=== PATIENT | male | born 1950 | race Caucasian/White ===

== ENCOUNTER → 2018-10-31 | Outpatient (CLI) | payer OTHER | END | disposition home or self-care (01) | LOC: SHCH 12:55 | PROVIDERS: ATTEND Internal Medicine Cardiovascular Disease | DX: I08.9 Rheumatic multiple valve disease, unspecified (principal) | CPT/HCPCS: 93306 ==

== ENCOUNTER → 2018-12-09 | Outpatient (CLI) | payer OTHER | END | disposition home or self-care (01) | LOC: SHCH 07:51 | PROVIDERS: ATTEND Internal Medicine Cardiovascular Disease | DX: E11.9 Type 2 diabetes mellitus without complications (principal); I73.9 Peripheral vascular disease, unspecified | CPT/HCPCS: 93978 ==

== ENCOUNTER → 2018-12-10 | Outpatient (CLI) | payer OTHER ==
[~2018-12-10] VITALS: Ht 188 cm; Wt 86.6 kg
[~2018-12-10] MED LIST: REGADENOSON 0.4 MG/5 ML PF SYG IVP SCH
== END | disposition home or self-care (01) ==
LOC: SHCH 11:25
PROVIDERS: ATTEND Internal Medicine Cardiovascular Disease
DX: R94.31 Abnormal electrocardiogram [ECG] [EKG] (principal)
CPT/HCPCS: 78452; 93017; 96374; A9500 ×2; J2785

== ENCOUNTER → 2018-12-25 | Outpatient (CLI) | payer OTHER ==
[2018-12-25 11:39] LABS: CREATININE 0.9 mg/dL (0.5-1.5)
== END | disposition home or self-care (01) ==
LOC: LAB 10:59
PROVIDERS: ATTEND Internal Medicine Cardiovascular Disease
DX: R07.9 Chest pain, unspecified (principal); I25.10 Atherosclerotic heart disease of native coronary artery without angina pectoris
CPT/HCPCS: 36415; 82565; 84520

== ENCOUNTER 2019-02-04 08:46 | Observation (INO) | payer OTHER ==
[2019-01-30 12:23] LABS: APPEARANCE,URINE Clear (CLEAR); BILIRUBIN,URINE Negative (NEGATIVE); COLOR,URINE Yellow (YELLOW); GLUCOSE, URINE (UA) Negative (NEGATIVE); KETONES,URINE Negative (NEGATIVE); LEUKOCYTE ESTERASE ,URINE Small (NEGATIVE); NITRATE,URINE Negative (NEGATIVE); OCCULT BLOOD,URINE Negative (NEGATIVE); PROTEIN,URINE Negative (NEGATIVE)
[2019-01-30 12:23] LABS: BASOPHILS % (AUTO) 0.7 % (0.0-5.0); HEMATOCRIT 42.4 % (42-54); LYMPHOCYTES % (AUTO) 25.9 % (21.0-51.0); MEAN CORPUSCULAR HEMOGLOBIN 33.3 pg (27.0-33.0); MEAN CORPUSCULAR HGB CONC 34.1 g/dL (32.0-36.0); MEAN CORPUSCULAR VOLUME 97.8 fL (79-99); MONOCYTES % (AUTO) 6.9 % (3.0-13.0); NEUTROPHILS % (AUTO) 61.5 % (40.0-77.0); NUCLEATED RED BLOOD CELLS 0.1 % (0.0-0.19); PLATELET COUNT (AUTO) 170 K/uL (130-400); RED BLOOD CELL COUNT(AUTO) 4.33 MIL/uL (4.50-6.20); RED CELL DISTRIBUTION WIDTH 13.2 % (11.0-15.5); WHITE BLOOD COUNT (AUTO) 6.7 K/uL (4.8-10.8)
[2019-01-30 12:31] LABS: CREATININE 0.8 mg/dL (0.5-1.5)
[2019-01-30 12:35] LABS: INR 1.08 (0.85-1.15); PARTIAL THROMBOPLASTIN TIME 27.2 SEC (26.3-35.5); PROTHROMBIN TIME 11.3 SEC (9.6-11.6)
[2019-01-30 12:47] LABS: BACTERIA,URINE None Seen /HPF (None Seen); RBC,URINE 0-1 /HPF (0-1); SQUAMOUS EPITHELIAL CELL,UR 0-2 /HPF (0-2); WBC,URINE 0-1 /HPF (0-1)
[2019-01-30 12:59] VITALS: BP 124/68
--- NOTE | 2019-02-03 10:45 | NUR ---
ABNORMAL LABS ABNORMAL UA RESULT REPORTED TO JAMA ZAMORA AT [facility]. PER NOAH, UA RESULT REPORTED TO GIORGI WHALEN OF DR. TAYLOR. NO FURTHER ORDERS GIVEN, MAY PROCEED WITH PLANNED PROCEDURE.
[2019-02-04] VITALS (18 sets, daily range): BP systolic 102–157; BP diastolic 60–104
[~2019-02-04] VITALS: Ht 182.9 cm; Wt 8.6 kg
[~2019-02-04 08:46] MED LIST changes: +ALBUTEROL; +ASPI-1026 PO; +BUDE10.2 IH; +COMBIVENT; +EPINEPHRIN IM; +GUAIFENESIN; +HYDROCORTISONE; +IPRA3AMP24 IH; +KETO5DRO75 OP; +LACHLOT TP; +LISI-613 PO; +LORA10CA9 PO; +METO-391 PO; +MULT400C3 PO; +NITR0.4T50 SL; +OXYB5POW MC; -REGADENOSON 0.4 MG/5 ML PF SYG IVP SCH; +SIMV40TA5 PO; +TERA1CAP4 PO; +THEOPHYLLINE; +[UNRECOGNIZED DRUG - OTHER]; +[UNRECOGNIZED DRUG - OTHER]; +[UNRECOGNIZED DRUG - OTHER]; +[UNRECOGNIZED DRUG - OTHER]
[2019-02-04] MEDS ORDERED: SODIUM CHLORIDE 0.9% 1000ML 1,000 ML IV ONE (10:15)
--- NOTE | 2019-02-04 10:27 | NUR ---
PROCEDURE PT HERE FOR PROCEDURE. PT DENIES ANY PAIN AT THIS TIME.
[2019-02-04] MEDS ORDERED: SODIUM BICARB 50MEQ 50ML VIAL ONE (10:32)
[2019-02-04] MEDS ORDERED: HEPARIN SODIUM 1000UNIT/ML 10ML VIAL ONE (10:32)
[2019-02-04] MEDS ORDERED: IOHEXOL-350 50ML VIAL IV ONE (10:33)
[2019-02-04] MEDS ORDERED: IOHEXOL 350 MG/ML 100ML INFUS..BTL IV ONE (10:33)
[2019-02-04] MEDS ORDERED: NITROGLYCERIN 5 MG/ML 10 ML VIAL IV ONE (10:33)
[2019-02-04] MEDS ORDERED: LIDOCAINE HCL 2% 20ML ONE (10:33)
--- NOTE | 2019-02-04 10:40 | NUR ---
PROCEDURE PT TAKEN TO PROCEDURE VIA BENZENE WASHER OPERATOR STAFF María ARITA RN.
[2019-02-04] MEDS ORDERED: MEPERIDINE-PF 25 MG/ML SYG ONE (10:50)
[2019-02-04] MEDS ORDERED: MIDAZOLAM HCL 1 MG/ML 2ML VIAL ONE (10:50)
[2019-02-04] MEDS ORDERED: ASPIRIN 81MG TAB.CHEW ONE (12:22)
[2019-02-04] MEDS ORDERED: CLOPIDOGREL BISULFATE 300 MG TAB ONE (12:22)
[2019-02-04] MEDS ORDERED: METO-391 PO (12:24)
[2019-02-04] MEDS ORDERED: CLOB15CR5 TP (12:24)
[2019-02-04] MEDS ORDERED: AEC81 PO (12:24)
[2019-02-04] MEDS: SODIUM CHLORIDE 0.9% 1000ML 1,000 ML IV SCH ×2 (12:27→21:56)
[2019-02-04] MEDS ORDERED: ACETAMINOPHEN-CODEINE 300/30MG TAB PO PRN ×2 (12:30)
[2019-02-04] MEDS ORDERED: ONDANSETRON HCL 4 MG/2 ML VIAL IVP PRN (12:30)
[2019-02-04] MEDS ORDERED: NITROGLYCERIN 0.4 MG SL TAB SL PRN (12:45)
[2019-02-04] MEDS ORDERED: IPRATROPIUM/ALBUTEROL SULFATE 3 ML SOLUTION IH SCH (12:45)
[2019-02-04] MEDS ORDERED: PHARMACY COMMUNICATION MISC SCH (12:45)
[2019-02-04] MEDS ORDERED: ALBUTEROL SULFATE/IPRATROPIUM 103/18 MCG/PUFF 14.7 GM INHR IH SCH (13:00)
[2019-02-04] MEDS ORDERED: CLOPIDOGREL BISULFATE 300 MG TAB PO SCH (13:55)
[2019-02-04] MEDS ORDERED: IPRATROPIUM/ALBUTEROL SULFATE 3 ML SOLUTION IH PRN (15:30)
[2019-02-04 16:05] LABS: BASOPHILS % (AUTO) 0.6 % (0.0-5.0); EOSINOPHILS % (AUTO) 4.5 % (0.0-8.0); HEMATOCRIT 38.3 % (42-54); LYMPHOCYTES % (AUTO) 26.4 % (21.0-51.0); MEAN CORPUSCULAR HEMOGLOBIN 33.1 pg (27.0-33.0); MEAN CORPUSCULAR HGB CONC 34.6 g/dL (32.0-36.0); MEAN CORPUSCULAR VOLUME 95.7 fL (79-99); MONOCYTES % (AUTO) 6.8 % (3.0-13.0); NEUTROPHILS % (AUTO) 61.7 % (40.0-77.0); PLATELET COUNT (AUTO) 160 K/uL (130-400); WHITE BLOOD COUNT (AUTO) 5.8 K/uL (4.8-10.8)
[2019-02-04] MEDS: IPRATROPIUM/ALBUTEROL SULFATE 3 ML SOLUTION IH SCH ×2 (18:58→23:31)
[2019-02-04] MEDS: BUDESONIDE 0.5 MG/2 ML INH IH SCH (19:10)
[2019-02-04] MEDS ORDERED: SIMVASTATIN 20 MG TABLET PO SCH (21:00)
[2019-02-04] MEDS ORDERED: OXYBUTYNIN CHLORIDE 5 MG TABLET PO SCH (21:00)
[2019-02-05] MEDS: GUAIFENESIN-DM 200/20 MG 10 ML PO PRN ×2 (03:05→08:46)
[2019-02-05 04:00] VITALS: BP 122/62
[2019-02-05 05:39] LABS: HEMATOCRIT 38.3 % (42-54); MEAN CORPUSCULAR HEMOGLOBIN 33.6 pg (27.0-33.0); MEAN CORPUSCULAR HGB CONC 34.4 g/dL (32.0-36.0); MEAN CORPUSCULAR VOLUME 97.5 fL (79-99); PLATELET COUNT (AUTO) 137 K/uL (130-400); RED BLOOD CELL COUNT(AUTO) 3.93 MIL/uL (4.50-6.20); WHITE BLOOD COUNT (AUTO) 6.9 K/uL (4.8-10.8)
[2019-02-05 05:57] LABS: CREATININE 0.8 mg/dL (0.5-1.5); POTASSIUM 4.6 mmol/L (3.5-5.1)
[2019-02-05] MEDS: IPRATROPIUM/ALBUTEROL SULFATE 3 ML SOLUTION IH SCH ×2 (06:18→11:09)
[2019-02-05] MEDS: BUDESONIDE 0.5 MG/2 ML INH IH SCH (06:20)
[2019-02-05] MEDS: SODIUM CHLORIDE 0.9% 1000ML 1,000 ML IV SCH (06:38)
[2019-02-05 07:30] VITALS: BP 118/64
[2019-02-05] MEDS ORDERED: ASPIRIN 81 MG EC TAB PO SCH (09:00)
[2019-02-05] MEDS ORDERED: LORATADINE 10 MG TABLET PO SCH (09:00)
[2019-02-05] MEDS ORDERED: CLOBETASOL PROPIONATE TP SCH (09:00)
[2019-02-05] MEDS ORDERED: MULTIVITAMIN TABLET PO SCH (09:00)
[2019-02-05] MEDS ORDERED: EMOLL TP SCH (09:00)
[2019-02-05] MEDS ORDERED: THEOPHYLLINE ANHYDROUS 100 MG CAP.ER.24H PO SCH (09:00)
[2019-02-05] MEDS ORDERED: LISINOPRIL 20 MG TABLET PO SCH (09:00)
[2019-02-05] MEDS ORDERED: TERAZOSIN HCL 1 MG PO SCH (09:00)
[2019-02-05] MEDS ORDERED: CLOPIDOGREL BISULFATE 75 MG TAB PO SCH (09:00)
[2019-02-05] MEDS ORDERED: ALBUTEROL 90 MCG IH PRN (09:00)
[2019-02-05] MEDS ORDERED: AMMONIUM LACTATE TD SCH (09:00)
[2019-02-05] MEDS ORDERED: APPL TD SCH (09:00)
[2019-02-05] MEDS ORDERED: SYMBICORT 160-4.5 MCG INHALER IH SCH (09:00)
[2019-02-05 11:00] VITALS: BP 129/71
--- NOTE | 2019-02-05 12:34 | NUR ---
D/C LEFT HAND IV. GAVE PATIENT DISCHARGE INSTRUCTIONS. INFORMED PATIENT OF MEDICATIONS AND FOLLOW UP APPOINTMENTS. PROVIDED EDUCATION. PATIENT READY FOR DISCHARGE.
[2019-02-05] MEDS ORDERED: Metoprolol Succinate 25 MG PO SCH (21:00)
== END 2019-02-05 12:35 | disposition home or self-care (01) ==
LOC: DAH 08:46 → DAHIP 08:47 → DAH 08:47 → 4CH 13:45
PROVIDERS: ADMIT Internal Medicine; ATTEND Internal Medicine
DX: I25.119 Atherosclerotic heart disease of native coronary artery with unspecified angina pectoris (principal); E11.51 Type 2 diabetes mellitus with diabetic peripheral angiopathy without gangrene; I10 Essential (primary) hypertension; I70.209 Unspecified atherosclerosis of native arteries of extremities, unspecified extremity; Q25.0 Patent ductus arteriosus; Z95.1 Presence of aortocoronary bypass graft; E66.9 Obesity, unspecified; Z86.19 Personal history of other infectious and parasitic diseases; Z79.899 Other long term (current) drug therapy; Z79.01 Long term (current) use of anticoagulants
CPT/HCPCS: 36415 ×3; 71045; 75710; 80048 ×2; 80061; 81001; 85025 ×2; 85027; 85610; 85730; 93005; 93459; 94640 ×3; 94664; A4215; A4216; A4221; A4222; A4223 ×3; A4606; C1725 ×3; C1760; C1769 ×2; C1876; C1887; C1894; C9600; G0378 ×23; J1644 ×2; J2175; J2250; J3490 ×3; J7030; Q9965; Q9967; 99156; 99157

== ENCOUNTER 2019-04-02 05:44 | Day surgery (SDC) | payer OTHER ==
[2019-03-31 11:35] VITALS: BP 99/64
[2019-03-31 12:52] LABS: BASOPHILS % (AUTO) 0.7 % (0.0-5.0); EOSINOPHILS % (AUTO) 3.4 % (0.0-8.0); HEMATOCRIT 40.6 % (42-54); LYMPHOCYTES % (AUTO) 24.2 % (21.0-51.0); MEAN CORPUSCULAR HEMOGLOBIN 33.4 pg (27.0-33.0); MEAN CORPUSCULAR HGB CONC 34.6 g/dL (32.0-36.0); MEAN CORPUSCULAR VOLUME 96.5 fL (79-99); MONOCYTES % (AUTO) 6.1 % (3.0-13.0); NEUTROPHILS % (AUTO) 65.6 % (40.0-77.0); PLATELET COUNT (AUTO) 186 K/uL (130-400); RED BLOOD CELL COUNT(AUTO) 4.21 MIL/uL (4.50-6.20); RED CELL DISTRIBUTION WIDTH 13.2 % (11.0-15.5); WHITE BLOOD COUNT (AUTO) 6.4 K/uL (4.8-10.8)
[2019-03-31 12:55] LABS: APPEARANCE,URINE Clear (CLEAR); BILIRUBIN,URINE Negative (NEGATIVE); COLOR,URINE Yellow (YELLOW); GLUCOSE, URINE (UA) Negative (NEGATIVE); KETONES,URINE Negative (NEGATIVE); LEUKOCYTE ESTERASE ,URINE Small (NEGATIVE); NITRATE,URINE Negative (NEGATIVE); OCCULT BLOOD,URINE Negative (NEGATIVE); PH,URINE 6.5 (5.0-8.0); PROTEIN,URINE Negative (NEGATIVE)
[2019-03-31 13:03] LABS: BACTERIA,URINE Rare /HPF (None Seen); RBC,URINE 0-1 /HPF (0-1); SQUAMOUS EPITHELIAL CELL,UR Rare /HPF (0-2)
[2019-03-31 13:05] LABS: POTASSIUM 4.7 mmol/L (3.5-5.1)
[2019-03-31 13:21] LABS: INR 1.08 (0.85-1.15); PARTIAL THROMBOPLASTIN TIME 27.3 SEC (26.3-35.5); PROTHROMBIN TIME 11.3 SEC (9.6-11.6)
--- NOTE | 2019-04-01 11:30 | NUR ---
Home medications pt called to clarify pt home med ications he needs to take in am .verified with her on pre admission teaching which meds he needs to take
--- NOTE | 2019-04-01 12:22 | NUR ---
ABNORMAL UA Leigh Ann Garcia RN reported urine results to Vasquez RAND NO orders given
[~2019-04-02] VITALS: Ht 188 cm; Wt 85.5 kg
[2019-04-02] VITALS (11 sets, daily range): BP systolic 84–154; BP diastolic 57–78
[~2019-04-02 05:44] MED LIST changes: +ACETAMINOPHEN 325 MG TAB PO PRN; +AEC81 PO; +ALBU8.5H8 IH; -ALBUTEROL; -ASPI-1026 PO; +CLOP75TA14 PO; -COMBIVENT; -EPINEPHRIN IM; -GUAIFENESIN; -HYDROCORTISONE; +IBUP-2076 PO; -IPRA3AMP24 IH; -KETO5DRO75 OP; -LACHLOT TP; -MULT400C3 PO; +MV,C1TAB21 PO; +NEURIVA PO; -OXYB5POW MC; +OXYB5TAB15 PO; +SIMV-46 PO; -SIMV40TA5 PO; +SODIUM CHLORIDE 0.9% 500ML 500 ML IV SCH; +TIOT4MIS5 IH; -[UNRECOGNIZED DRUG - OTHER]; -[UNRECOGNIZED DRUG - OTHER]; -[UNRECOGNIZED DRUG - OTHER]; -[UNRECOGNIZED DRUG - OTHER]; +[UNRECOGNIZED DRUG - OTHER] OU; +[UNRECOGNIZED DRUG - OTHER] OU
[2019-04-02] MEDS ORDERED: SODIUM CHLORIDE 0.9% 1000ML 1,000 ML IV ONE (07:09)
[2019-04-02] MEDS ORDERED: HEPARIN SODIUM 1000UNIT/ML 10ML VIAL ONE (12:34)
[2019-04-02] MEDS ORDERED: SODIUM BICARB 50MEQ 50ML VIAL ONE (12:34)
[2019-04-02] MEDS ORDERED: NITROGLYCERIN 5 MG/ML 10 ML VIAL IV ONE (12:35)
[2019-04-02] MEDS ORDERED: MEPERIDINE-PF 25 MG/ML SYG ONE ×3 (12:35→13:44)
[2019-04-02] MEDS ORDERED: MIDAZOLAM HCL 1 MG/ML 2ML VIAL ONE ×3 (12:35→13:44)
[2019-04-02] MEDS ORDERED: IODIXANOL 320 MG/ML 100 ML VIAL ONE (12:35)
[2019-04-02] MEDS ORDERED: LIDOCAINE HCL 2% 20ML ONE (12:37)
[2019-04-02] MEDS ORDERED: SODIUM CHLORIDE 0.9% 1000ML 1,000 ML IV SCH (14:09)
--- NOTE | 2019-04-02 15:15 | NUR ---
CARE RESUMED CARE FOR PATIENT FROM Andrea HAMM RN
--- NOTE | 2019-04-02 19:59 | NUR ---
dc dc instructions given to pt son , i nstructed to f/u with dr. ana luisa crowder , on bleeding to right groin precautions, to continue home meds. right groin with mynx closure , dressing to site dry and intact. pt denies any pain or discomforts.
--- NOTE | 2019-04-02 20:05 | NUR ---
dc pt dc home via wc, no distress noted. pt denied any pain or discomfort pt accompanied by son
== END 2019-04-02 20:05 | disposition home or self-care (01) ==
LOC: DAH 05:44
PROVIDERS: ATTEND Internal Medicine Cardiovascular Disease
DX: I70.212 Atherosclerosis of native arteries of extremities with intermittent claudication, left leg (principal); I25.10 Atherosclerotic heart disease of native coronary artery without angina pectoris; J44.9 Chronic obstructive pulmonary disease, unspecified; I10 Essential (primary) hypertension; B19.20 Unspecified viral hepatitis C without hepatic coma; Z95.5 Presence of coronary angioplasty implant and graft; Z95.818 Presence of other cardiac implants and grafts; Z88.2 Allergy status to sulfonamides; Z79.82 Long term (current) use of aspirin; Z79.899 Other long term (current) drug therapy; Z98.890 Other specified postprocedural states; Z88.1 Allergy status to other antibiotic agents; Z87.891 Personal history of nicotine dependence; Z83.3 Family history of diabetes mellitus; Z82.49 Family history of ischemic heart disease and other diseases of the circulatory system
CPT/HCPCS: 36415 ×2; 37226; 71045; 75625; 75710; 80048; 81001; 85025; 85347; 85610; 85730; 93005; A4215; A4216; A4221; A4222; A4223 ×3; A4606; C1725; C1760; C1769; C1874 ×3; C1887; C1893; C1894 ×2; J1644; J2175 ×3; J2250 ×3; J3490 ×3; J7030; Q9967; 99156; 99157

== ENCOUNTER → 2019-04-08 | Outpatient (CLI) | payer OTHER ==
[~2019-04-08] MED LIST changes: -ACETAMINOPHEN 325 MG TAB PO PRN; -SODIUM CHLORIDE 0.9% 500ML 500 ML IV SCH
== END | disposition home or self-care (01) ==
LOC: RAH 13:44
PROVIDERS: ATTEND Internal Medicine Cardiovascular Disease
DX: I80.203 Phlebitis and thrombophlebitis of unspecified deep vessels of lower extremities, bilateral (principal)
CPT/HCPCS: 93970

== ENCOUNTER 2019-04-16 02:01 | Observation (INO) | payer OTHER ==
[~2019-04-16] VITALS: Ht 188 cm; Wt 84.5 kg
[~2019-04-16 02:01] MED LIST changes: -SIMV-46 PO; +SIMV40TA5 PO
[2019-04-16] MEDS ORDERED: DiphenhydrAMINE HCL 50 MG/ML VIAL ONE (02:09)
[2019-04-16] MEDS ORDERED: METHYLPREDNISOLONE SOD SUCC 125MG/2ML VIAL ONE (02:11)
[2019-04-16] MEDS ORDERED: FAMOTIDINE/PF 20 MG/2 ML VIAL IV ONE (02:11)
[2019-04-16] MEDS ORDERED: SODIUM CHLORIDE 0.9% 1000ML 1,000 ML IV ONE (02:12)
[2019-04-16] MEDS ORDERED: EPINEPHRINE 1 MG/ML AMPULE ONE (02:12)
[2019-04-16 02:23] LABS: BASOPHILS % (AUTO) 1.2 % (0.0-5.0); EOSINOPHILS % (AUTO) 5.5 % (0.0-8.0); HEMATOCRIT 37.9 % (42-54); LYMPHOCYTES % (AUTO) 31.7 % (21.0-51.0); MEAN CORPUSCULAR HEMOGLOBIN 33.3 pg (27.0-33.0); MEAN CORPUSCULAR HGB CONC 34.8 g/dL (32.0-36.0); MEAN CORPUSCULAR VOLUME 95.7 fL (79-99); MONOCYTES % (AUTO) 6.7 % (3.0-13.0); NEUTROPHILS % (AUTO) 54.9 % (40.0-77.0); PLATELET COUNT (AUTO) 274 K/uL (130-400); RED BLOOD CELL COUNT(AUTO) 3.97 MIL/uL (4.50-6.20); RED CELL DISTRIBUTION WIDTH 12.3 % (11.0-15.5); WHITE BLOOD COUNT (AUTO) 7.1 K/uL (4.8-10.8)
[2019-04-16 02:32] LABS: CREATININE 0.8 mg/dL (0.5-1.5); POTASSIUM 4.1 mmol/L (3.5-5.1)
[2019-04-16 02:37] LABS: ALBUMIN 3.3 g/dL (3.5-5.0); BILIRUBIN,TOTAL 0.3 mg/dL (0.2-1.0)
[2019-04-16] MEDS ORDERED: SODIUM CHLORIDE 0.9% 1000ML 1,000 ML IV SCH (04:34)
[2019-04-16] MEDS ORDERED: ACETAMINOPHEN 325 MG TAB PO PRN ×2 (04:45)
[2019-04-16] MEDS ORDERED: ONDANSETRON HCL 4 MG/2 ML VIAL IV PRN (04:45)
[2019-04-16] MEDS ORDERED: LACTULOSE 20 GM/30 ML UDCUP PO PRN (04:45)
[2019-04-16 05:35] VITALS: BP 130/83
[2019-04-16 07:20] VITALS: BP 147/62
--- NOTE | 2019-04-16 08:30 | NUR ---
NURSING OBSERVATION/ PT WANTS TO LEAVE SPOKE WITH PT, STATES NEEDS TO LEAVE HAS TO TAKE CARE OF HIS , ASKED ABOUT HIS TONGUE, STATES FEELS MUCH BETTER. INFORMED CALLED PHYSICIAN, PENDING CALL BACK. STATES ONLY WILLING TO STAY 20 MINUTES.
[2019-04-16] MEDS ORDERED: FAMOTIDINE/PF 20 MG/2 ML VIAL IV SCH (09:00)
[2019-04-16] MEDS ORDERED: ENOXAPARIN SODIUM 40 MG/0.4 ML SYRINGE SQ SCH (09:00)
[2019-04-16] MEDS ORDERED: METHYLPREDNISOLONE SOD SUCC 40MG/ML 1ML IVP SCH (21:00)
== END 2019-04-16 08:46 | disposition left against medical advice (07) ==
LOC: EDH 02:01 → EDHIP 04:34 → 4BH 05:22
PROVIDERS: ADMIT Hospitalist; ATTEND Hospitalist
DX: T78.3XXA Angioneurotic edema, initial encounter (principal); I10 Essential (primary) hypertension; J44.9 Chronic obstructive pulmonary disease, unspecified; I25.10 Atherosclerotic heart disease of native coronary artery without angina pectoris; I73.9 Peripheral vascular disease, unspecified; B19.20 Unspecified viral hepatitis C without hepatic coma; E78.5 Hyperlipidemia, unspecified; F17.200 Nicotine dependence, unspecified, uncomplicated; Z95.1 Presence of aortocoronary bypass graft; Z79.82 Long term (current) use of aspirin; Z79.899 Other long term (current) drug therapy; Z88.2 Allergy status to sulfonamides; X58.XXXA Exposure to other specified factors, initial encounter; Y92.89 Other specified places as the place of occurrence of the external cause
CPT/HCPCS: 36415; 80053; 85025; 99284; G0378 ×4; J0171; J1200; J2930; J3490; J7030

== ENCOUNTER 2019-08-11 08:03 | Observation (INO) | payer OTHER ==
[~2019-08-11] VITALS: Ht 188 cm; Wt 85.7 kg
[~2019-08-11 08:03] MED LIST changes: +SIMV-46 PO; -SIMV40TA5 PO
[2019-08-11 09:42] LABS: BASOPHILS % (AUTO) 0.7 % (0.0-5.0); EOSINOPHILS % (AUTO) 4.7 % (0.0-8.0); HEMATOCRIT 41.4 % (42-54); LYMPHOCYTES % (AUTO) 20.6 % (21.0-51.0); MEAN CORPUSCULAR HEMOGLOBIN 31.6 pg (27.0-33.0); MEAN CORPUSCULAR HGB CONC 34.3 g/dL (32.0-36.0); MONOCYTES % (AUTO) 7.6 % (3.0-13.0); NEUTROPHILS % (AUTO) 66.2 % (40.0-77.0); PLATELET COUNT (AUTO) 273 K/uL (130-400); RED CELL DISTRIBUTION WIDTH 11.8 % (11.0-15.5); WHITE BLOOD COUNT (AUTO) 8.2 K/uL (4.8-10.8)
[2019-08-11] MEDS ORDERED: METHYLPREDNISOLONE SOD SUCC 125MG/2ML VIAL ONE (09:42)
[2019-08-11] MEDS ORDERED: DiphenhydrAMINE HCL 50 MG/ML VIAL ONE ×3 (09:42→21:58)
[2019-08-11] MEDS ORDERED: FAMOTIDINE/PF 20 MG/2 ML VIAL IV ONE (09:43)
[2019-08-11] MEDS ORDERED: SODIUM CHLORIDE 0.9% 1000ML 1,000 ML IV ONE ×2 (09:46→15:02)
[2019-08-11 09:51] LABS: CREATININE 0.8 mg/dL (0.5-1.5); POTASSIUM 4.9 mmol/L (3.5-5.1)
[2019-08-11 09:56] LABS: ALBUMIN 3.2 g/dL (3.5-5.0); BILIRUBIN,TOTAL 0.7 mg/dL (0.2-1.0); TOTAL PROTEIN, SERUM 7.3 g/dL (6.0-8.3)
[2019-08-11] MEDS ORDERED: ALBUTEROL SULFATE 0.083% 2.5 MG/3 ML INH IH ONE ×2 (11:22→17:25)
[2019-08-11] MEDS ORDERED: METHYLPREDNISOLONE SOD SUCC 125MG/2ML VIAL IVP SCH (14:00)
[2019-08-11] MEDS ORDERED: DiphenhydrAMINE HCL 50 MG/ML VIAL IV PRN (14:00)
[2019-08-11] MEDS ORDERED: CEFTRIAXONE SODIUM 1 GM IVP SCH (14:00)
[2019-08-11] MEDS ORDERED: ALBUTEROL SULFATE 0.083% 2.5 MG/3 ML INH IH PRN (14:00)
[2019-08-11] MEDS ORDERED: BENZOCAINE/MENTH/CETYLPYRD CL 1 EACH LOZENGE MM PRN (14:00)
[2019-08-11] MEDS ORDERED: SODIUM CHLORIDE 0.9% 1000ML 1,000 ML IV SCH (14:00)
[2019-08-11] MEDS ORDERED: CEFTRIAXONE SODIUM 1 GM ONE (15:01)
[2019-08-11] MEDS ORDERED: IPRATROPIUM/ALBUTEROL SULFATE 3 ML SOLUTION IH ONE (15:05)
[2019-08-11] MEDS ORDERED: METHYLPREDNISOLONE SOD SUCC 40MG/ML 1ML ONE (18:38)
[2019-08-11] MEDS ORDERED: DOXYCYCLINE HYCLATE 100 MG TABLET PO SCH (21:00)
[2019-08-11] MEDS ORDERED: DOXYCYCLINE HYCLATE 100 MG TABLET PO ONE (21:57)
[2019-08-11] MEDS ORDERED: ACETAMINOPHEN 325 MG TAB ONE (23:29)
[2019-08-12] MEDS ORDERED: ONDANSETRON HCL 4 MG/2 ML VIAL IVP PRN (01:45)
[2019-08-12] MEDS ORDERED: LACTULOSE 20 GM/30 ML UDCUP PO PRN (01:45)
[2019-08-12] MEDS ORDERED: CEFTRIAXONE SODIUM 1 GM ONE (03:55)
[2019-08-12] MEDS ORDERED: METHYLPREDNISOLONE SOD SUCC 40MG/ML 1ML ONE ×2 (03:55→10:02)
[2019-08-12] MEDS ORDERED: SODIUM CHLORIDE 0.9% 50 ML IV ONE (03:56)
[2019-08-12 05:05] LABS: HEMATOCRIT 39.2 % (42-54); MEAN CORPUSCULAR HEMOGLOBIN 31.4 pg (27.0-33.0); MEAN CORPUSCULAR HGB CONC 34.7 g/dL (32.0-36.0); MEAN CORPUSCULAR VOLUME 90.5 fL (79-99); PLATELET COUNT (AUTO) 268 K/uL (130-400); RED BLOOD CELL COUNT(AUTO) 4.33 MIL/uL (4.50-6.20); RED CELL DISTRIBUTION WIDTH 11.5 % (11.0-15.5); WHITE BLOOD COUNT (AUTO) 5.7 K/uL (4.8-10.8)
[2019-08-12 05:25] LABS: POTASSIUM 4.7 mmol/L (3.5-5.1)
[2019-08-12 05:36] LABS: B-TYPE NATRIURETIC PEPTIDE 180 pg/mL (0-100)
[2019-08-12] MEDS ORDERED: ALBUTEROL SULFATE 0.083% 2.5 MG/3 ML INH IH ONE (06:04)
[2019-08-12] MEDS ORDERED: FAMOTIDINE/PF 20 MG/2 ML VIAL IV SCH (09:00)
[2019-08-12] MEDS ORDERED: DOXYCYCLINE HYCLATE 100 MG TABLET PO ONE (10:02)
[2019-08-12] MEDS ORDERED: FAMOTIDINE/PF 20 MG/2 ML VIAL IV ONE (10:03)
[2019-08-12] MEDS ORDERED: CLOPIDOGREL BISULFATE 75 MG TAB ONE (10:03)
[2019-08-12] MEDS ORDERED: EPIN0.3P3 IJ (10:23)
--- NOTE | 2019-08-12 11:06 | NUR ---
INITIAL Patient lives with spouse, Saadia Rincon, [phone]. No home services. DME: nebulizer, CPAP, standard walker, shower chair. Patient is able to complete ADL's independently and drives. PCP is Dr. Aly Jacobo [place] . [facility]. DCP is paso robles.
--- NOTE | 2019-08-12 11:26 | NUR ---
Patient A/OX4. Patient condition stable. IV removed. Patient tolerated well. Patient instructed on new medication Epinephrine, and to follow up c/ Primary Care Physician in 3-5 days. Patient verbalized understanding. Left in private care c/ Friend.
== END 2019-08-12 11:30 | disposition home or self-care (01) ==
LOC: EDH 08:03 → EDHIP 08:04
PROVIDERS: ADMIT Internal Medicine; ATTEND Internal Medicine
DX: T63.331A Toxic effect of venom of brown recluse spider, accidental (unintentional), initial encounter (principal); R06.02 Shortness of breath; T78.3XXA Angioneurotic edema, initial encounter; J44.9 Chronic obstructive pulmonary disease, unspecified; I25.10 Atherosclerotic heart disease of native coronary artery without angina pectoris; I10 Essential (primary) hypertension; R55 Syncope and collapse; E11.51 Type 2 diabetes mellitus with diabetic peripheral angiopathy without gangrene; Z88.2 Allergy status to sulfonamides; Z95.1 Presence of aortocoronary bypass graft; Z90.49 Acquired absence of other specified parts of digestive tract; Z98.890 Other specified postprocedural states; Z72.0 Tobacco use; Y92.89 Other specified places as the place of occurrence of the external cause
CPT/HCPCS: 36415 ×2; 71045; 80048; 80053; 83880; 85025; 85027; 93005; 94640 ×3; 94664; 99285; G0378 ×17; J0696 ×2; J1200 ×3; J2920 ×3; J2930; J3490 ×2; J7030 ×2

== ENCOUNTER 2019-08-15 06:24 | Day surgery (SDC) | payer OTHER ==
[2019-08-13 13:27] LABS: BASOPHILS % (AUTO) 0.2 % (0.0-5.0); HEMATOCRIT 41.4 % (42-54); LYMPHOCYTES % (AUTO) 20.4 % (21.0-51.0); MEAN CORPUSCULAR HEMOGLOBIN 31.7 pg (27.0-33.0); MEAN CORPUSCULAR HGB CONC 33.8 g/dL (32.0-36.0); MEAN CORPUSCULAR VOLUME 93.7 fL (79-99); NEUTROPHILS % (AUTO) 71.9 % (40.0-77.0); PLATELET COUNT (AUTO) 283 K/uL (130-400); RED BLOOD CELL COUNT(AUTO) 4.42 MIL/uL (4.50-6.20); WHITE BLOOD COUNT (AUTO) 12.9 K/uL (4.8-10.8)
[2019-08-13 13:34] LABS: APPEARANCE,URINE Clear (CLEAR); BILIRUBIN,URINE Negative (NEGATIVE); COLOR,URINE Yellow (YELLOW); GLUCOSE, URINE (UA) Negative (NEGATIVE); KETONES,URINE Negative (NEGATIVE); LEUKOCYTE ESTERASE ,URINE Negative (NEGATIVE); NITRATE,URINE Negative (NEGATIVE); OCCULT BLOOD,URINE Negative (NEGATIVE); PROTEIN,URINE Negative (NEGATIVE); UROBILINOGEN,URINE 0.2 mg/dL (0.2-1.0)
[2019-08-13 13:36] LABS: POTASSIUM 5.1 mmol/L (3.5-5.1)
[2019-08-13 13:43] LABS: INR 1.2 (0.85-1.15); PARTIAL THROMBOPLASTIN TIME 25.5 SEC (26.3-35.5); PROTHROMBIN TIME 12.5 SEC (9.6-11.6)
[2019-08-13 13:45] VITALS: BP 134/83
--- NOTE | 2019-08-14 14:20 | NUR ---
SPOKE TO SHAWN GONZALEZ AND ADVISED HIM OF O PT/INR 12.5/1.20, WBC 12.9, AND CHEST XRAY WITH RIGHT APICAL SCARRING AND OR OPACITY, NO ONE ORDERS, OKAY TO PROCEED.
[~2019-08-15] VITALS: Ht 188 cm; Wt 85.6 kg
[2019-08-15] VITALS (10 sets, daily range): BP systolic 108–134; BP diastolic 60–91
[~2019-08-15 06:24] MED LIST changes: +EPIN0.3P3 IJ; -LISI-613 PO; +SODIUM CHLORIDE 0.9% 500ML 500 ML IV SCH
[2019-08-15] MEDS ORDERED: NITROGLYCERIN 2 MG/VIAL VIAL IV ONE (09:58)
[2019-08-15] MEDS ORDERED: IODIXANOL 320 MG/ML 100 ML VIAL ONE (09:58)
[2019-08-15] MEDS ORDERED: HEPARIN SODIUM 1000UNIT/ML 10ML VIAL ONE (09:58)
[2019-08-15] MEDS ORDERED: MIDAZOLAM HCL 1 MG/ML 2ML VIAL ONE (09:59)
[2019-08-15] MEDS ORDERED: FENTANYL CITRATE PF 50 MCG/1 ML 2ML VIAL ONE (10:04)
[2019-08-15] MEDS ORDERED: LIDOCAINE HCL 2% 20ML ONE (10:04)
[2019-08-15] MEDS ORDERED: CLOPIDOGREL BISULFATE 300 MG TAB ONE (10:56)
[2019-08-15] MEDS ORDERED: ASPIRIN 325MG EC TAB 325 MG TABLET.DR PO ONE (11:47)
[2019-08-15] MEDS ORDERED: ACETAMINOPHEN 325 MG TAB PO PRN (13:15)
[2019-08-15] MEDS ORDERED: ACETAMINOPHEN 325 MG TAB ONE (13:21)
== END 2019-08-15 16:00 | disposition home or self-care (01) ==
LOC: DAH 06:24
PROVIDERS: ATTEND Internal Medicine Cardiovascular Disease
DX: I70.211 Atherosclerosis of native arteries of extremities with intermittent claudication, right leg (principal); I25.10 Atherosclerotic heart disease of native coronary artery without angina pectoris; I10 Essential (primary) hypertension; J44.9 Chronic obstructive pulmonary disease, unspecified; E66.9 Obesity, unspecified; Z88.2 Allergy status to sulfonamides; Z79.01 Long term (current) use of anticoagulants; Z79.82 Long term (current) use of aspirin; Z79.899 Other long term (current) drug therapy
CPT/HCPCS: 36415; 37225; 71045; 75625; 75710; 80048; 81003; 85025; 85610; 85730; 93005; C1760; C1769; C1884; C1893; C1894 ×3; C2623; J1644 ×3; J2250; J3010; J3490 ×2; Q9967; 75716; 99156; 99157; C1725

== ENCOUNTER → 2020-08-18 | Outpatient (CLI) | payer OTHER ==
[~2020-08-18] MED LIST changes: -SODIUM CHLORIDE 0.9% 500ML 500 ML IV SCH
== END | disposition home or self-care (01) ==
LOC: SHCH 08:03
PROVIDERS: ATTEND Internal Medicine Cardiovascular Disease
DX: I70.291 Other atherosclerosis of native arteries of extremities, right leg (principal); I70.292 Other atherosclerosis of native arteries of extremities, left leg
CPT/HCPCS: 93925

== ENCOUNTER → 2020-12-22 | Outpatient (CLI) | payer OTHER | END | disposition home or self-care (01) | LOC: SHCH 11:20 | PROVIDERS: ATTEND Internal Medicine Cardiovascular Disease | DX: I65.23 Occlusion and stenosis of bilateral carotid arteries (principal) | CPT/HCPCS: 93880 ==

== ENCOUNTER → 2022-01-27 | Outpatient (CLI) | payer OTHER ==
[~2022-01-27] VITALS: Ht 188 cm; Wt 79.8 kg
[~2022-01-27] MED LIST changes: +REGADENOSON 0.4 MG/5 ML PF SYG IVP ONE; +REGADENOSON 0.4 MG/5 ML PF SYG IVP SCH
== END | disposition home or self-care (01) ==
LOC: SHCH 01-17 08:26
PROVIDERS: ATTEND Internal Medicine Cardiovascular Disease
DX: R07.89 Other chest pain (principal); R06.00 Dyspnea, unspecified; I25.2 Old myocardial infarction; I73.9 Peripheral vascular disease, unspecified; Z95.1 Presence of aortocoronary bypass graft
CPT/HCPCS: 78452; 96374; 93017; J2785; A9500 ×2

== ENCOUNTER 2024-04-29 06:44 | Day surgery (SDC) | payer OTHER ==
[2024-04-29] VITALS (10 sets, daily range): BP systolic 83–164; BP diastolic 48–86; PULSE 46–58; RESP 15–16; TEMP 96.6–97.6
[~2024-04-29] VITALS: Ht 185.4 cm; Wt 66.7 kg
[2024-04-29] MEDS ORDERED: TAMS-1 PO (08:06)
[2024-04-29] MEDS ORDERED: METO-391 PO (08:06)
[2024-04-29] MEDS ORDERED: SIMV-46 PO (08:06)
[2024-04-29] MEDS ORDERED: ASPI-1197 PO (08:06)
[2024-04-29] MEDS ORDERED: APIX5TAB PO (08:06)
[2024-04-29] MEDS ORDERED: ALBU18HF7 IH (08:06)
[2024-04-29] MEDS ORDERED: MEMA10TA21 PO (08:06)
[2024-04-29] MEDS ORDERED: CILO50TA2 PO (08:06)
[2024-04-29] MEDS ORDERED: ALLO100T PO (08:06)
[2024-04-29] MEDS ORDERED: AMIO200T68 PO (08:06)
[2024-04-29] MEDS: 0.9%NACL 1000ML 1,000 ML IV ONE (08:08)
[2024-04-29] MEDS ORDERED: proPOFol 10 MG/ML 20ML VIAL IV ONE ×2 (10:07→10:37)
== END 2024-04-29 11:50 | disposition home or self-care (01) ==
LOC: DAH 06:44 → ENDO 06:44
PROVIDERS: ATTEND Internal Medicine
DX: K59.01 Slow transit constipation (principal); K29.50 Unspecified chronic gastritis without bleeding; K22.2 Esophageal obstruction; K22.89 Other specified disease of esophagus; K31.89 Other diseases of stomach and duodenum; D12.3 Benign neoplasm of transverse colon; D12.8 Benign neoplasm of rectum; K56.699 Other intestinal obstruction unspecified as to partial versus complete obstruction; K57.30 Diverticulosis of large intestine without perforation or abscess without bleeding; R13.10 Dysphagia, unspecified; Z86.0100 Personal history of colon polyps, unspecified; I10 Essential (primary) hypertension; J44.9 Chronic obstructive pulmonary disease, unspecified; I25.10 Atherosclerotic heart disease of native coronary artery without angina pectoris; Z95.5 Presence of coronary angioplasty implant and graft; E78.5 Hyperlipidemia, unspecified; G40.909 Epilepsy, unspecified, not intractable, without status epilepticus; K50.90 Crohn's disease, unspecified, without complications; Z98.890 Other specified postprocedural states; Z79.82 Long term (current) use of aspirin; Z79.899 Other long term (current) drug therapy
CPT/HCPCS: 45380; 45385; 43239; 43248; J7030; J2704 ×2; A4620; A4215; A4657; J3490

== ENCOUNTER → 2024-07-12 | Outpatient (CLI) | payer OTHER ==
[~2024-07-12] MED LIST changes: -AEC81 PO; +ALBU18HF7 IH; -ALBU8.5H8 IH; +ALLO100T PO; +AMIO200T68 PO; +APIX5TAB PO; +ASPI-1197 PO; -BUDE10.2 IH; +CILO50TA2 PO; -CLOP75TA14 PO; -EPIN0.3P3 IJ; -IBUP-2076 PO; -LORA10CA9 PO; +MEMA10TA21 PO; -MV,C1TAB21 PO; -NEURIVA PO; -NITR0.4T50 SL; -OXYB5TAB15 PO; -REGADENOSON 0.4 MG/5 ML PF SYG IVP ONE; -REGADENOSON 0.4 MG/5 ML PF SYG IVP SCH; +TAMS-1 PO; -TERA1CAP4 PO; -THEOPHYLLINE; -TIOT4MIS5 IH; -[UNRECOGNIZED DRUG - OTHER] OU; -[UNRECOGNIZED DRUG - OTHER] OU
--- NOTE | 2024-07-15 12:00 | HMCSR ---
APPROVED REPORT EXAM: Two-dimensional and M-mode echocardiogram with Doppler and color Doppler. INDICATION ICD: Shortness of breath R06.02 2D Dimensions RVDd3.8 cmLVEF(%)62.6 (>50%)LVED Vol(simp.)168.0 mL IVSd0.8 (0.7-1.1cm)FS(%)34 %LVES Vol(simp.)77.2 mL LVDd6.1 (3.8-5.6cm)LA (2D)4.5 (1.6-4.0cm)LVEF(%, simp.)54 % PWd0.7 (0.7-1.1cm)Ao Root(2D)4.1 (2.0-3.7cm)LA ESV INDEX (4CH)27.50 mL/m2 IVSs1.3 cmLVOT diam2.6 (1.8-2.4cm)LA ESV INDEX (2CH)40.90 mL/m2 LVDs4.0 (2.5-4.0cm)LA ESV INDEX (BP)32.10 mL/m2 PWs1.4 cm M-Mode Dimensions EPSS2.8 cm LA (MM)4.4 (1.6-4.0cm) Ao Root(MM)4.3 (2.0-3.7cm) Aortic Valve AoV VTI0.3 mAo Mean GR4.0 mmHgLVOT VTI0.19 m JAYLAN (VMAX)3.8 cm2AVA (VTI) 3.8 cm2 Mitral Valve MV E Vmax65.5 cm/sDECEL Hluu123 ms MV A Vmax65.0 cm/sP 1/2 T57 ms E/A ratio1.0MVA (PHT)3.9 cm2 TDI E/E' Medial9.5E/E' Lateral5.8 Medial E' Peak V6.90 cm/sLateral E' Peak V11.20 cm/s Pulmonary Valve PV VTI0.20 mPV Mean GR2 mmHg Left Ventricle The left ventricle is mildly dilated. There is normal left ventricular wall thickness. LVEF is 50-55% . No left ventricle thrombus noted on this study. The left ventricular diastolic function is normal. Right Ventricle The right ventricle is normal size. The right ventricular systolic function is normal. Atria The left atrium size is normal. The right atrium size is normal. Aortic Valve The aortic valve is normal in structure. Trace aortic regurgitation. There is no aortic valvular sten osis. Mitral Valve The mitral valve is normal in structure. Mitral regurgitation is trace. There is no mitral valve sten osis. Tricuspid Valve The tricuspid valve is normal in structure. There is no tricuspid valve regurgitation noted. Pulmonic Valve The pulmonary valve is normal in structure. There is no pulmonic valvular regurgitation. Great Vessels The aortic root is normal in size. The IVC is normal in size and collapses >50% with inspiration. Pericardium There is no pericardial effusion. Conclusion The left ventricle is mildly dilated. LVEF is 50-55%. The right ventricle is normal size. The left atrium size is normal. The aortic valve is normal in structure. Trace aortic regurgitation. There is no aortic valvular stenosis. Mitral regurgitation is trace. There is no mitral valve stenosis. There is no tricuspid valve regurgitation noted. There is no pulmonic valvular regurgitation. The aortic root is normal in size. The IVC is normal in size and collapses >50% with inspiration. There is no pericardial effusion.
== END | disposition home or self-care (01) ==
LOC: SHCH 12:42
PROVIDERS: ATTEND Internal Medicine Cardiovascular Disease
DX: I51.7 Cardiomegaly (principal); R06.02 Shortness of breath
CPT/HCPCS: 93306

== ENCOUNTER → 2025-03-12 | Outpatient (CLI) | payer OTHER ==
[~2025-03-12] MED LIST changes: -AMIO200T68 PO; +AMIO200T73 PO; -TAMS-1 PO; +TAMS-55 PO
[2025-03-12] MEDS: REGADENOSON 0.4 MG/5 ML PF SYG IVP ONE (08:51)
== END | disposition home or self-care (01) ==
LOC: RAH 03-11 08:57
PROVIDERS: ATTEND Internal Medicine Cardiovascular Disease
DX: I25.10 Atherosclerotic heart disease of native coronary artery without angina pectoris (principal)
CPT/HCPCS: 78452; 93017; J2785; A9500 ×2

== ENCOUNTER 2025-06-12 07:04 | Day surgery (SDC) | payer OTHER ==
[2025-06-09 08:19] VITALS: BP 120/67; PULSE 79; RESP 17; TEMP 97.3
[2025-06-09 08:19] LABS: IMMATURE GRANULOCYTE ABSOLUTE 0.06 K/uL (0-1); NUCLEATED RED BLOOD CELLS 0.0 % (0.0-0.19); PLATELET COUNT (AUTO) 318 K/uL (130-400); RED BLOOD CELL COUNT(AUTO) 3.73 MIL/uL (4.50-6.20); RED CELL DISTRIBUTION WIDTH 13.1 % (11.0-15.5); WHITE BLOOD COUNT (AUTO) 6.6 K/uL (4.8-10.8)
[2025-06-09 08:23] LABS: CREATININE 1.0 mg/dL (0.5-1.3); GLOMERULAR FILTR. RATE CALC 78.0 mL/min (>90); GLUCOSE,RANDOM 97.0 mg/dL (70-105); SODIUM SERUM 143.0 mmol/L (136-145); UREA NITROGEN, BLOOD 13.0 mg/dL (7-18)
[2025-06-09 08:26] LABS: INR 1.14 (0.85-1.15)
--- NOTE | 2025-06-09 11:15 | EKG ---
[facility] Test Date: 2025-06-09 Test Time: 08:06:48 Pat Name: JEANIE MARTIN Department: [facility] Room: Gender: M Custom Shoemaker: [id number] : 1950 Requested By: ARVIN VILLATORO Order Number: [id number] Reading MD: Yung Rosa Measurements Intervals [place] Rate: 63 P: 61 NM: 146 QRS: 73 QRSD: 116 T: 68 QT: 483 QTc: 495 Interpretive Statements Sinus rhythm Nonspecific intraventricular conduction delay Compared to ECG 08/13/2019 13:09:20 Intraventricular conduction delay now present Ventricular premature complex(es) no longer present Electronically Signed On 06-09-2025 16:15:56 PROPERTY CLAIMS ADJUSTER by Yung Rosa Please click the below link to view image of tracing.
[~2025-06-12] VITALS: Ht 182.9 cm; Wt 62.7 kg
[2025-06-12] VITALS (14 sets, daily range): BP systolic 130–172; BP diastolic 64–104; PULSE 62–82; RESP 13–19; TEMP 97.1–97.7
[~2025-06-12 07:04] MED LIST changes: -ALBU18HF7 IH; +ALBU2.5V2 IH; +BUDE10.7 IH; +CARB-283 OU; +FAMO40TA7 PO; +FINA5TAB41 PO; +LORA10TA7 PO; -METO-391 PO; +ONE A DAY VITAMIN PO; +PANT40TA54 PO; +PLEC3TAB2 PO; +POLY119P2 PO; +PREVAGEN PO; +SIMV-43 PO; -SIMV-46 PO; +[UNRECOGNIZED DRUG - CODE] PO
[2025-06-12] MEDS: ALBUTEROL 0.042% 1.25MG/3ML IH ONE ×2 (08:02)
[2025-06-12] MEDS: LACTATED RINGERS 1000ML 1,000 ML IV ONE (09:00)
[2025-06-12] MEDS ORDERED: MIDAZOLAM HCL 1 MG/ML 2ML VIAL ONE (09:25)
[2025-06-12] MEDS ORDERED: LIDOCAINE HCL/EPINEPHRINE 30 ML VIAL IJ ONE (09:37)
[2025-06-12] MEDS ORDERED: ALBU18HF7 IH (10:51)
[2025-06-12] MEDS ORDERED: SUGAMMADEX SODIUM 200 MG/2 ML VIAL IV ONE (11:20)
--- NOTE | 2025-06-12 11:28 | OP ---
Operative Note: DATE OF PROCEDURE: 06/12/25 SURGEON: ARVIN VILLATORO DO DIALYSIS BIOMED TECHNICIAN: None ANESTHESIA: General ANESTHESIOLOGIST/DATA CLERK: Jay Jay zhou CRNA PREOPERATIVE DIAGNOSIS: Right inguinal hernia POSTOPERATIVE DIAGNOSIS: Right inguinal hernia SYNOPSIS: None PROCEDURE: Robotic assisted laparoscopic right inguinal hernia repair with mesh ESTIMATED BLOOD LOSS: 10 cc INDICATIONS: This is a 74-year-old male with a painful right inguinal hernia for many years. The patient denies signs and symptoms of obstruction. The patient was sent to his health and social care teacher and sewing machine operator zipper for perioperative risk stratification and medical optimization prior to surgery. I recommended that the patient quit smoking two weeks before and after surgery. Patient was to hold all antiplatelet and anticoagulation medications 3-5 days prior to surgery depending on what the sewing machine operator zipper was agreeable with. I discussed robotic right inguinal hernia repair. All questions were answered. The patient expressed understanding and agreement with the plan. DESCRIPTION OF PROCEDURE: Patient was placed on the operating table in the supine position. After adequate sedation the patient was intubated by anesthesia. A Pompa was placed. The patient was then placed in lithotomy position. Perioperative antibiotics were given. The patient's abdomen was prepped and draped in the usual sterile fashion. A timeout was performed. Local anesthetic was infiltrated into the skin and subcutaneous tissue of the proposed left upper quadrant incision. A 2 cm transverse left upper quadrant marks's point skin incision was made. The peritoneal cavity was accessed using a 5 mm Optiview technique. The abdomen was insufflated. The patient tolerated insufflation well. All 4 quadrants of the abdominal cavity were inspected and found to be grossly normal with the exception of a right indirect inguinal defect. There was also a very small inguinal hernia on the left side. 2 additional 8 mm robotic ports were placed in the right and left hemiabdomen under direct visualization. The patient was placed in headdown right side up position and the robot was docked. A peritoneal flap was created 6 cm cephalad to the defect. The hernia sac was encircled and removed from the spermatic cord structures using a combination of blunt and electrocautery dissection. A 1 to 2 cm cord lipoma was present which was also reduced. Some of the fat overlying the ureter was cauterized. There was no apparent injury to the ureter. I reapproximated the fat using interrupted suture of 4-0 Vicryl. A large 3D max mid Bard right inguinal hernia mesh was placed into the preperitoneal space and affixed using 2 interrupted sutures of 2-0 Vicryl one at the pubic tubercle and the other at the superior lateral aspect of the mesh. The peritoneum was approximated using 3 0 V-Loc in a running fashion. The abdomen was again ins pected. The robot was undocked. The robotic ports were removed under direct visualization and found to be hemostatic. The skin was approximated using 4-0 Monocryl in a subcuticular fashion and dressed with Dermabond. All instrument, needle, and sponge counts were correct at the end of the procedure. The Pompa was removed. The patient was aroused from sedation, extubated, and transferred to the postanesthesia care unit in good condition. ARVIN VILLATORO DO Jun 12, 2025 11:28
[2025-06-12] MEDS ORDERED: GABA-529 PO (12:54)
--- NOTE | 2025-06-12 13:15 | NUR ---
Full and complete discharge instructions given to Patient and Family both verbally and in writing. Tolerated fluids and voided in bathroom. PIV removed with catheter tip intact. Dressing to surgical site clean and dry. Patient denies any pain or discomfort. W/C to POV with Family to home.
== END 2025-06-12 13:15 | disposition home or self-care (01) ==
LOC: DAH 07:04
PROVIDERS: ATTEND Student in an Organized Health Care Education/Training Program
DX: K40.90 Unilateral inguinal hernia, without obstruction or gangrene, not specified as recurrent (principal); J44.9 Chronic obstructive pulmonary disease, unspecified; F17.210 Nicotine dependence, cigarettes, uncomplicated; Z90.49 Acquired absence of other specified parts of digestive tract; Z88.2 Allergy status to sulfonamides; Z79.01 Long term (current) use of anticoagulants; Z79.899 Other long term (current) drug therapy
CPT/HCPCS: 80048; 85025; 85610; 85730; 86850 ×2; 86900 ×2; 86901 ×2; 36415 ×2; 93005; 49650; 94640; A4223 ×2; A4600; A6260; S2900; A4663; J7030; A4344; J7120; J3010 ×2; J3490 ×2; J2250; J2704; J2795; J2371; J0690; C1769; C1781; A4930; A4215; A4213; A4222; A4221; A4216